=== PATIENT | male | born 1935 | race Caucasian/White ===

== ENCOUNTER → 2016-07-28 | Outpatient (CLI) | payer OTHER ==
[~2016-07-28] MED LIST: ADVIN10/60 INH; ASPEC81 PO; CITA10TA8 PO; METO25TA3 PO; RIVA1TAB4 PO; SIMV10TA2 PO; SYNUNK PO; VNTHFA/IN INH; WARF5TAB7 PO
--- NOTE | 2016-07-28 11:47 | DIAGNOSTIC IMAGING REPORT ---
CT OF THE CHEST WITHOUT IV CONTRAST CLINICAL HISTORY: Lung nodule. COMPARISON STUDY: CT of the abdomen and pelvis February 14, 2016. CT DOSE: 417.67 mGycm TECHNIQUE: Axial images of the chest were obtained without IV contrast. Images were reviewed in the axial, sagittal, and coronal planes. IV contrast was not administered for this examination. FINDINGS: No enlarged axillary, mediastinal or hilar lymph nodes are present. The size the heart is normal. There is slight dilatation of the ascending aorta. There is no pericardial effusion. No pneumothorax or pleural effusion is present. Central airways are patent. There is no consolidation. A few tiny subpleural left lower lobe nodules measuring up to 4 mm are unchanged since CT of February 14, 2016. The largest is a 4 mm nodule shown image 225 of 326. There are a few calcified nodules within the lungs which are benign. There is mild upper lobe predominant paraseptal emphysema. A few right renal cysts are incidentally noted. There are small amount of secretions within the trachea. IMPRESSION: No change in a few tiny subpleural nodules with the left lower lobe since prior CT of February 14, 2016. These nodules, in addition to a few additional small pulmonary nodules are likely benign. A follow-up chest CT in one year to ensure stability is recommended. Electronically signed by: Gil Ashley M.D. 07/28/2016 11:45 AM Dictated Date/Time: 07/28/2016 11:31 AM
== END | disposition home or self-care (01) ==
LOC: C.CTS 10:31
PROVIDERS: ATTEND Nurse Practitioner Family
DX: R91.1 Solitary pulmonary nodule (principal); R91.8 Other nonspecific abnormal finding of lung field

== ENCOUNTER → 2016-09-26 | Outpatient (CLI) | payer OTHER ==
[2016-09-26 09:45] LABS: BASO % 1.2 %; BASO ABS # 0.07 K/uL (0-0.2); COMPLETE YES; EOS % 2.7 %; HEMATOCRIT 42.9 % (42-52); IG% 0.2 %; LYMPH % 30.2 %; LYMPH ABS # 1.81 K/uL (1.2-3.4); MEAN CELL VOLUME 86.8 fL (80-100); MEAN CORPUSCULAR HEMOGLOBIN 30.2 pg (25-34); MEAN CORPUSCULAR HGB CONC 34.7 g/dl (32-36); MEAN PLATELET VOLUME 11.6 fL (7.4-10.4); MONO % 9.8 %; NEUT % 55.9 %; PLATELET COUNT 159 K/uL (130-400); RED BLOOD COUNT 4.94 M/uL (4.7-6.1); WHITE BLOOD COUNT 5.99 K/uL (4.8-10.8)
[2016-09-26 10:29] LABS: ALT/SGPT 25 U/L (12-78); BLOOD UREA NITROGEN 10 mg/dl (7-18); BUN/CREATININE RATIO 10.2 (10-20); CALCIUM 9.2 mg/dl (8.5-10.1); CARBON DIOXIDE 26 mmol/L (21-32); CHLORIDE 106 mmol/L (98-107); CHOLESTEROL 183 mg/dl (0-200); GLUCOSE 103 mg/dl (70-99); SODIUM 141 mmol/L (136-145); TRIGLYCERIDES 87 mg/dl (0-150); VERY LOW DENSITY LIPOPROT CALC 17 mg/dl
[2016-09-26 10:45] LABS: ALKALINE PHOSPHATASE 70 U/L (45-117); AST/SGOT 22 U/L (15-37); CHOLESTEROL/HDL RATIO 2.7; HDL CHOLESTEROL 68 mg/dl; LDL CHOLESTEROL CALCULATED 98 mg/dl; PROSTATE SPECIFIC ANTIGEN < 0.010 ng/ml (0.000-4.000)
--- NOTE | 2016-10-12 10:22 | CODING QUERY MEDICAL NECESSITY ---
CQSUPPORTING DIAGNOSIS NEEDED A supporting diagnosis is required for the test/procedure performed on this patient in order for us to be reimbursed by the patient's insurance. Please provide a supporting diagnosis for the following test/procedure listed below next to the test name along with your signature. *If there is no additional diagnosis for this patient that would support the following test/procedure please document that below next to the test/procedure. Test(s)/Procedure(s) that require a supporting diagnosis: DOS 09/26/16 PROSTATE SPECIFIC TEST (PSA) Provider Signature: Date: Thank you Sima Carr Health Information Management Once completed, please kindly fax back to [phone] For questions please call [phone]
== END | disposition home or self-care (01) ==
LOC: C.LAB 08:43
PROVIDERS: ATTEND Nurse Practitioner Family
DX: R39.9 Unspecified symptoms and signs involving the genitourinary system (principal); E03.9 Hypothyroidism, unspecified; E78.5 Hyperlipidemia, unspecified; J44.9 Chronic obstructive pulmonary disease, unspecified; C61 Malignant neoplasm of prostate

== ENCOUNTER → 2017-04-05 | Day surgery (SDC) | payer OTHER ==
[2017-03-09 13:41] VITALS: Ht 185.4 cm; Wt 92.7 kg
[~2017-04-05] VITALS: Ht 185.4 cm; Wt 92.7 kg
[~2017-04-05] MED LIST changes: +500ML BSS 0.3ML EPI 1:1000PF IRRIG ONE; +ACETAMINOPHEN 325 MG TAB PO PRN; +AMVISC PLUS 0.8ML SYRINGE INT OCU ONE; +ATROPINE SULFATE 0.1 MG/ML 5ML SYR IV PRN; +AcetaZOLAMIDE 250 MG TAB PO SCH; +BETAXOLOL HCL 0.25% OP SUSP PER DROP CHARGE OPR SCH; +BRIMONIDINE TART 0.2% OP SOLN PER DROP CHARGE ONE; +BSS FLUSH ONE; -CITA10TA8 PO; +ENDOCOAT 0.85ML SYRINGE INT OCU ONE; +EpHEDrine SULFATE INJ 50 MG/ML AMP IV PRN; +EpINEphrine INJ 1MG/ML AMP 1 MG/ML AMP ONE; +LACTATED RINGER'S 1000ML 500 ML IV SCH; +LIDOCAINE 4% OP SOLN DROP CHARGE ONE; +LIDOCAINE 4% OP SOLN DROP CHARGE OPR SCH; +LIDOCAINE HCL 1% MPF 2 ML VIAL ONE; +MIDAZOLAM HCL 1 MG/ML 2ML VIAL ONE; +MIX: 4ML BSS 1ML EPI 1:1000 PF INSTIL ONE; +MOXIFLOXACIN OPH SOLN PER DROP CHARGE ONE; +OCUCOAT 1 ML SOLN IO ONE; +POVIDONE-IODINE OP SOLN 30 ML BTL ONE; +PROPARACAINE 0.5% OP SOLN PER DROP CHARGE OPR SCH; -RIVA1TAB4 PO; +TOBRAMYCIN/DEXAMETHASONE OPH OINT PER APPLN CHARGE ONE
[2017-04-05] MEDS: PHENYLEPHRINE HCL 2.5% OP SOLN PER DROP CHARGE OPR SCH ×2 (08:11→08:15)
[2017-04-05] MEDS: TROPICAMIDE 1% OP SOLN PER DROP CHARGE OPR SCH ×2 (08:12→08:16)
[2017-04-05] MEDS: CYCLOPENTOLATE HCL 1% OP SOLN PER DROP CHARGE OPR SCH ×2 (08:13→08:17)
[2017-04-05] MEDS: MOXIFLOXACIN OPH SOLN PER DROP CHARGE OPR SCH ×2 (08:14→08:22)
--- NOTE | 2017-04-05 08:53 | History & Physical Bridge - [place] ---
H&P Re-Evaluation Bridge Note: I have examined the patient, reviewed the History & Physical and in the interval since the performance of the History & Physical I have noted the following changes of clinical significance: No changes noted
--- NOTE | 2017-04-05 09:16 | Discharge Instructions-SurgCtr ---
Discharge Instructions Date of Service Apr 05, 2017. Visit Reason for Visit: Cataract Right Eye Discharge Discharge Diagnosis / Problem: lens implant right eye Discharge Goals Goal(s): Improve function Activity Recommendations Activity Limitations: resume your previous activity Lifting Limitations: no more than 10 pounds Exercise/Sports Limitations: gradually increase as tolerated May Resume Sexual Activity: when tolerated Shower/Bathe: tomorrow Driving or Machine Use: resume 1 day after discharge Anesthesia . Post Anesthesia Instructions: If you have had General Anesthesia or IV Sedation: * Do not drive today. * Resume driving when surgeon permits. * Do not make important decisions or sign legal documents today. * Call surgeon for: 1. Temperature elevations greater than 101 degrees F. 2. Uncontrollable pain. 3. Excessive bleeding. 4. Persistent nausea and vomiting. 5. Medication intolerance (nausea, vomiting or rash). * For nausea and vomiting use only clear liquids such as: tea, soda, bouillon until nausea subsides, then gradually increase diet as tolerated. * If you have any concerns or questions, call your surgeon's office. If physician is unavailable and it is an emergency, call 911 or go to the nearest emergency room. . Instructions / Follow-Up Instructions / Follow-Up ACTIVITY RECOMMENDATIONS: * Light activities. * Mild irritation and blurred vision are common for the first few days. * You may walk outside, read, watch television. * Redness around the white part of the eye is common. MEDICATIONS: Resume previous medications unless instructed otherwise by your surgeon. * Take white Diamox (Acetazolamide) tablet at 1 pm today. Start all eye drops at 1 pm today: * Eye drops (today and tomorrow): Prednisone - one drop in operative eye every 3 hours while awake Ofloxacin - one drop in operative eye every 3 hours while awake SPECIAL CARE INSTRUCTIONS: * Tape plastic shield over eye to sleep at night. Call your doctor at with any concerns or problems. FOLLOW UP VISIT: Follow-up with Dr La at [place] office as scheduled. Diet Recommendations Home Diet: no limitations Procedures Procedures Performed: cataract extraction with lens implant Pending Studies Studies pending at discharge: no Medical Emergencies . Who to Call and When: Medical Emergencies: If at any time you feel your situation is an emergency, please call 911 immediately. . Non-Emergent Contact Non-Emergency issues call your: Funeral Car Driver Call Non-Emergent contact if: your pain is not controlled [phone] . . "Provider Documentation" section prepared by Seven La. .
--- NOTE | 2017-04-05 09:17 | [facility] Operative Report ---
Operative Report Date of Service Apr 05, 2017. Operative Report 1. PREOPERATIVE DIAGNOSIS: Senile nuclear cataract, right eye. 2. POSTOPERATIVE DIAGNOSIS: Senile nuclear cataract, right eye. 3. PROCEDURE: Phacoemulsification of right cataract with posterior chamber lens implant, type [employer], model MX60, power +21.5 diopters. ANESTHESIA: Local standby. SURGEON: Dr. La. COMPLICATIONS: None. OPERATING TIME: 10 minutes. 4. OPERATION AND FINDINGS: DESCRIPTION OF PROCEDURE: The right pupil was dilated. The anesthetic was administered using a topical technique. The right eye was prepped and draped. A speculum was placed. A clear corneal incision was formed. The chamber was filled with Amvisc Plus and Endocoat. Epinephrine solution was used. A paracentesis was placed. A capsulorrhexis was performed. The nucleus was hydrodissected. The lens was removed with phacoemulsification. Time was 3.97 seconds. The aspiration unit was used to remove the cortex. The capsule was filled with Amvisc Plus. The lens implant was folded and placed into the capsule. The incision was hydrated. The Amvisc was aspirated. The wound was secure. The chamber was deep. The pupil was round. Brimonidine, TobraDex ointment and Vigamox solution were placed. The speculum was removed. The patient was returned to the Recovery Room in stable condition. I attest to the content of the Intraoperative Record and any orders documented therein. Any exceptions are noted below. The scribe's documentation has been prepared in my presence, under my direction and personally reviewed by me in its entirety. I confirm that the note above accurately reflects all work, treatment, procedures, and medical decision making performed by me. I personally scribed for Seven La M.D. ([email or web address]) on 04/05/17 at 09:17. Electronically submitted by Karis Arriaga ([email or web address]).
[2017-04-05 09:20] VITALS: TEMP 36.4
--- NOTE | 2017-04-05 09:38 | Anesthesia Progress Nt - [facility] ---
Anesthesia Post Op Note Date & Time Apr 05, 2017 at 09:38 Vital Signs Pain Intensity: 0 Vital Signs Past 12 Hours Date Time Temp Pulse Resp B/P (MAP) Pulse Ox O2 Delivery O2 Flow Rate FiO2 04/05/17 09:20 36.4 64 18 156/85 (108) 96 Room Air 04/05/17 08:00 36.5 58 18 167/76 (106) 96 Room Air Notes Mental Status: alert / awake / arousable, participated in evaluation Pt Amnestic to Procedure: Yes Nausea / Vomiting: adequately controlled Pain: adequately controlled Airway Patency, RR, SpO2: stable & adequate BP & HR: stable & adequate Hydration State: stable & adequate Anesthetic Complications: no major complications apparent
[2017-04-05 09:46] VITALS: BP 148/75; PULSE 46; O2SAT 94
== END | disposition home or self-care (01) ==
LOC: X.SURG 07:42
PROVIDERS: ATTEND Specialist
DX: H25.11 Age-related nuclear cataract, right eye (principal); I10 Essential (primary) hypertension

== ENCOUNTER → 2017-04-07 | Outpatient (CLI) | payer OTHER ==
[~2017-04-07] MED LIST changes: -500ML BSS 0.3ML EPI 1:1000PF IRRIG ONE; -ACETAMINOPHEN 325 MG TAB PO PRN; -AMVISC PLUS 0.8ML SYRINGE INT OCU ONE; -ATROPINE SULFATE 0.1 MG/ML 5ML SYR IV PRN; -AcetaZOLAMIDE 250 MG TAB PO SCH; -BETAXOLOL HCL 0.25% OP SUSP PER DROP CHARGE OPR SCH; -BRIMONIDINE TART 0.2% OP SOLN PER DROP CHARGE ONE; -BSS FLUSH ONE; -ENDOCOAT 0.85ML SYRINGE INT OCU ONE; -EpHEDrine SULFATE INJ 50 MG/ML AMP IV PRN; -EpINEphrine INJ 1MG/ML AMP 1 MG/ML AMP ONE; -LACTATED RINGER'S 1000ML 500 ML IV SCH; -LIDOCAINE 4% OP SOLN DROP CHARGE ONE; -LIDOCAINE 4% OP SOLN DROP CHARGE OPR SCH; -LIDOCAINE HCL 1% MPF 2 ML VIAL ONE; -MIDAZOLAM HCL 1 MG/ML 2ML VIAL ONE; -MIX: 4ML BSS 1ML EPI 1:1000 PF INSTIL ONE; -MOXIFLOXACIN OPH SOLN PER DROP CHARGE ONE; -OCUCOAT 1 ML SOLN IO ONE; -POVIDONE-IODINE OP SOLN 30 ML BTL ONE; -PROPARACAINE 0.5% OP SOLN PER DROP CHARGE OPR SCH; -TOBRAMYCIN/DEXAMETHASONE OPH OINT PER APPLN CHARGE ONE
[2017-04-07 10:10] LABS: ALT/SGPT 17 U/L (12-78); AST/SGOT 18 U/L (15-37); BLOOD UREA NITROGEN 12 mg/dl (7-18); BUN/CREATININE RATIO 10.6 (10-20); CALCIUM 9.4 mg/dl (8.5-10.1); CARBON DIOXIDE 23 mmol/L (21-32); CHLORIDE 108 mmol/L (98-107); CHOLESTEROL 173 mg/dl (0-200); GLUCOSE 89 mg/dl (70-99); POTASSIUM 3.9 mmol/L (3.5-5.1); SODIUM 140 mmol/L (136-145); TRIGLYCERIDES 60 mg/dl (0-150); VERY LOW DENSITY LIPOPROT CALC 12 mg/dl
[2017-04-07 10:21] LABS: ALKALINE PHOSPHATASE 67 U/L (45-117); CHOLESTEROL/HDL RATIO 2.7; HDL CHOLESTEROL 63 mg/dl; LDL CHOLESTEROL CALCULATED 98 mg/dl
== END | disposition home or self-care (01) ==
LOC: C.LAB 07:39
PROVIDERS: ATTEND Nurse Practitioner Family
DX: E03.9 Hypothyroidism, unspecified (principal); E78.5 Hyperlipidemia, unspecified; F32.9 Major depressive disorder, single episode, unspecified; J44.9 Chronic obstructive pulmonary disease, unspecified

== ENCOUNTER → 2017-09-21 | Outpatient (CLI) | payer OTHER ==
[~2017-09-21] MED LIST changes: -METO25TA3 PO; +METO25TA4 PO
--- NOTE | 2017-09-21 14:11 | DIAGNOSTIC IMAGING REPORT ---
CT SCAN OF THE CHEST WITHOUT IV CONTRAST CLINICAL HISTORY: Generalized abdominal pain. Follow-up pulmonary nodule. COMPARISON STUDY: Chest CT dated 07/28/2016. Abdominal CT dated 09/17/2015. TECHNIQUE: CT scan of the thorax was performed from the thoracic inlet to the upper abdomen. Images are reviewed in the axial, sagittal, and coronal planes. IV contrast was not administered for this examination as per the front clinician. A dose lowering technique was utilized adhering to the principles of ALARA. CT DOSE: 478.72 mGy.cm FINDINGS: Thyroid: Imaged portions of the thyroid gland are normal in size and heterogeneous in attenuation. Thoracic aorta: There is atherosclerotic calcification of the thoracic aorta, which is normal in caliber and demonstrates standard 3-vessel arch anatomy. Heart: The heart is normal in size and without pericardial effusion. There are coronary artery calcifications. Lungs and pleural spaces: Small fat-containing Bochdalek hernias are seen at both lung bases. Emphysematous change in apical scarring are noted. There is no airspace consolidation or pleural effusion. Linear scarring versus atelectasis is seen at the lung bases. There are scattered calcified granulomas. The trachea and central airways are clear. 2 pulmonary nodules in the left lower lobe measuring up to 3 mm are seen on image #208 and #219. These are unchanged dating back to 09/17/2015 and are of doubtful significance. No new or concerning pulmonary lesion is identified. Mediastinum: There is no mediastinal lymphadenopathy. Sraah: Not well assessed without IV contrast. Axillae: There is no axillary lymphadenopathy. Upper abdomen: There is a tiny hiatal hernia. Right renal cysts measure up to 3.9 cm. Skeletal structures: The skeletal structures are osteopenic. Degenerative change and hyperkyphosis are noted in the thoracic spine. No lytic or blastic bony lesions are seen. IMPRESSION: 1. Emphysema. 2. There is no airspace consolidation or pleural effusion. 3. There are 2 pulmonary nodules at the left lung base measuring up to 3 mm. These are unchanged from 09/17/2015 and of doubtful significance. No new or concerning pulmonary lesion is identified. 4. Additional findings as above. Electronically signed by: Jefry Carmen M.D. 09/21/2017 2:10 PM Dictated Date/Time: 09/21/2017 2:02 PM
== END | disposition home or self-care (01) ==
LOC: C.CTS 13:35
PROVIDERS: ATTEND Nurse Practitioner Family
DX: R91.8 Other nonspecific abnormal finding of lung field (principal); J43.9 Emphysema, unspecified

== ENCOUNTER → 2017-10-02 | Outpatient (CLI) | payer OTHER ==
[2017-10-02 09:34] LABS: BASO % 1.1 %; BASO ABS # 0.07 K/uL (0-0.2); EOS ABS # 0.19 K/uL (0-0.5); HEMATOCRIT 46.7 % (42-52); HEMOGLOBIN 15.8 g/dL (14.0-18.0); LYMPH % 34.9 %; LYMPH ABS # 2.24 K/uL (1.2-3.4); MEAN CELL VOLUME 85.5 fL (80-100); MEAN CORPUSCULAR HEMOGLOBIN 28.9 pg (25-34); MEAN CORPUSCULAR HGB CONC 33.8 g/dl (32-36); MEAN PLATELET VOLUME 12.7 fL (7.4-10.4); MONO % 11.4 %; MONO ABS # 0.73 K/uL (0.11-0.59); NEUT % 49.6 %; NEUT ABS # 3.18 K/uL (1.4-6.5); PLATELET COUNT 173 K/uL (130-400); RED CELL DISTRIBUTION WIDTH CV 14.2 % (11.5-14.5); RED CELL DISTRIBUTION WIDTH SD 44.4 fL (36.4-46.3); WHITE BLOOD COUNT 6.41 K/uL (4.8-10.8)
[2017-10-02 09:54] LABS: ALBUMIN 3.8 gm/dl (3.4-5.0); ALT/SGPT 21 U/L (12-78); BLOOD UREA NITROGEN 13 mg/dl (7-18); CALCIUM 9.2 mg/dl (8.5-10.1); CARBON DIOXIDE 26 mmol/L (21-32); CHOLESTEROL 190 mg/dl (0-200); CREATININE 1.03 mg/dl (0.60-1.40); GLUCOSE 96 mg/dl (70-99); POTASSIUM 4.1 mmol/L (3.5-5.1); SODIUM 137 mmol/L (136-145)
[2017-10-02 10:05] LABS: ALKALINE PHOSPHATASE 68 U/L (45-117); AST/SGOT 21 U/L (15-37); LDL CHOLESTEROL CALCULATED 111 mg/dl; TOTAL PROTEIN 7.6 gm/dl (6.4-8.2)
== END | disposition home or self-care (01) ==
LOC: C.LAB 08:16
PROVIDERS: ATTEND Nurse Practitioner Family
DX: E03.9 Hypothyroidism, unspecified (principal); E78.5 Hyperlipidemia, unspecified; J44.9 Chronic obstructive pulmonary disease, unspecified; Z79.01 Long term (current) use of anticoagulants; Z23 Encounter for immunization

== ENCOUNTER 2021-05-10 08:10 | Inpatient (IN) ==
[2021-05-10] MEDS ORDERED: SODIUM CHLORIDE 0.9% 1000ML 1,000 ML IV SCH (08:45)
--- NOTE | 2021-05-10 09:11 | Emergency Department Note ---
Impression & Plan COVID-19, Weakness ED Provider Note INFORMANT: Patient and family ED PROVIDER(S): Itz Awan MD CHIEF COMPLAINT: Weakness PLAN: Disposition: Admitted Condition: Good Outpatient prescription management: none Referral: None MEDICAL DECISION MAKING: Patient presented due to complaints of weakness. He had some mild flulike symptoms. The patient noted a positive at-home Covid test. He was hydrated. Blood work showed a moderate anemia which was stable. He was hypokalemic. His TSH was elevated. ECG was unremarkable. Chest x-ray does show some findings concerning for Covid pneumonia. The patient's O2 saturations were mildly low but still above 90%. He was given IV Decadron. Covid testing in ER was performed and confirmed his diagnosis. He notes no appetite and feels very weak. I discussed further management in the hospital. Patient was in agreement. Consultation was made with Dr. Spann. Evaluated patient in the ER and admitted for further management. Triage Nursing notes reviewed and agree them. Vital Signs: reviewed and remarkable for no significant abnormalities Differential diagnosis: COVID-19, infection, dehydration, metabolic abnormality, hypo/hyperglycemia, electrolyte disturbance, anemia, hypoxia, cardiac sources, intracerebral event, toxicologic, neurologic, as well as other pathologies. Diagnostics interpreted by me: ECG: Twelve-lead ECG reveals sinus bradycardia 53 bpm. Left axis deviation. Right bundle branch block. LVH. No ST elevation or depression. Cardiac Monitoring: Cardiac monitoring ordered by me: The patient was placed on continuous cardiac monitoring and observed. It revealed a normal sinus rhythm at 68 beats per minute without ectopy or evidence of dysrhythmia. Imaging studies: Chest x-ray as noted below. HPI: The patient is a 86 year old male who presents to the Emergency Room with complaints of generalized weakness. This started about 5 days ago and is persisting. The patient also notes the following associated symptoms, fatigue chronic cough, nausea. The patient has found no relieving factors. Current pain is rated as 0/10. Patient states that family member had him take a at home Covid test and it was positive. Patient is not vaccinated. No known sick contacts. Pt denies LOC, headache, fevers, chills, diaphoresis, visual changes, neck pain, chest pain, breathing difficulties, vomiting, abdominal pain, back pain, melena, hematochezia, urinary symptoms, numbness, lymphadenopathy, rash, or other complaints. ROS: See above HPI for pertinent positives & negatives. A total of 10 systems reviewed and were otherwise negative. PAST MEDICAL HISTORY:See Below , cOPD PAST SURGICAL HISTORY:See Below, FAMILY HISTORY:See Below SOCIAL HISTORY:See Below, retired HOME MEDICATIONS:See Below ALLERGIES:See Below VITALS:See Below PHYSICAL EXAMINATION: GENERAL: Awake, fatigued-appearing, in no distress HENT: Normocephalic, atraumatic. Oropharynx unremarkable. EYES: Normal conjunctiva. Sclera non-icteric. NECK: Inspection normal. Non-tender. Supple. No nuchal rigidity. FROM. No masses. RESPIRATORY: Clear to auscultation. No wheezes. No rales. Normal respiratory effort. CARDIAC: Normal rate. Normal rhythm. No murmurs. No rubs. Extremities warm and well perfused. Pulses equal. No JVD. GI: Soft, non-distended. No tenderness to palpation. No rebound or guarding. No masses. RECTAL: Deferred. MUSCULOSKELETAL: Atraumatic. Chest examination reveals no tenderness. The back is symmetrical on inspection without obvious abnormality. There is no CVA tend erness to palpation. No joint edema. LOWER EXTREMITIES: Calves are equal size bilaterally and non-tender. No edema. No discoloration. NEURO: Normal sensorium. No focal sensory or motor deficits noted. Speech normal. SKIN: No rash or jaundice noted. Itz Awan MD Past Med/Surg History Medical History History of herpes zoster History of malignant neoplasm of prostate Hypercholesterolemia Hypertension Hypothyroidism Mild AI (aortic insufficiency) Prostate CA Seasonal allergies TIA (transient ischemic attack) Surgical History History of femoral hernia repair History of prostate surgery Family History Father Myocardial infarction Denies family history of Colon cancer Ovarian cancer Prostate cancer No family history of adverse response to anesthesia Breast cancer Social History Smoking Status: Never smoker Tobacco Type: Cigarettes Age Started Using Tobacco: 13; Age Quit Using Tobacco: 77; packs per day: 2; Second Hand Exposure: No; Hx Alcohol Use: No Hx Substance Use: No Preferred Language: Welsh Communication Ability: Effective Visual Impairment: No Limitations Hearing Ability: Normal Road Train Driver Required: No Beliefs That Will Affect Care: None marital status: Current Living Situation: Spouse current occupational status: retired How many Children do You have: 3 Other Information That Helps Us Care for You: No Feels Safe at Home: Yes Safety Concerns: Feels Safe At This Time Childhood Exposure to Second-Hand Smoke: Yes caffeine: Yes during the past year weight has: remained stable Dental Care, Regularly: No Physical Activity Frequency: 1-2 Times per Week Seatbelt Use: always Assistive Devices: Cane Allergies Allergies Allergy/AdvReac Type Severity Reaction Status Date / Time Penicillins Allergy Unknown HIVES Unverified 05/07/21 10:20 Home Meds Home Medications Medication Instructions Recorded Confirmed aspirin 81 mg tablet 81 mg PO DAILY tab 02/19/19 05/07/21 Previous Rx's Medication Instructions Recorded melatonin 5 mg capsule 5 mg PO DAILY #90 cap 04/24/19 albuterol sulfate 90 mcg/actuation 1 - 2 puff INHALATION Q4H PRN #18 g 03/19/20 aerosol inhaler warfarin 5 mg tablet 5 mg PO UD #100 tab 09/01/20 levothyroxine 150 mcg tablet 150 mcg PO DAILY #90 tab 04/05/21 montelukast 10 mg tablet 10 mg PO DAILY #90 tab 04/05/21 simvastatin 20 mg tablet 20 mg PO QPM #90 tab 04/05/21 metoprolol succinate 25 mg 25 mg PO DAILY #90 tab 04/22/21 tablet,extended release 24 hr fluticasone 100 mcg-salmeterol 50 1 inh INHALATION Q12H #60 ea 04/29/21 mcg/dose blistr powdr for inhalation (Advair Diskus) Results & Data (ED) Vital Signs Vital Signs - 24 hr 05/10/21 08:14 05/10/21 08:42 05/10/21 09:00 Temperature 36.9 C Temperature Source Skin Pulse Rate 68 56 L 57 L Pulse Rate [Apical] Pulse Rate from SpO2 Sensor 56 L 57 L Pulse Rhythm [Apical] Pulse Strength [Apical] Respiratory Rate 18 24 19 Respiratory Effort / Characteristics Respiratory Depth Respiratory Pattern Blood Pressure 118/64 Blood Pressure [Right Arm] Blood Pressure Mean 82 Blood Pressure Mean [Right Arm] Blood Pressure Position [Right Arm] Pulse Oximetry 94 96 95 Oxygen Delivery Method Room Air Sepsis Recent Fever Within 48 Hours No Sepsis New/Unexplained Change in Mental Status No Sepsis Action Taken by Nursing No Action Required 05/10/21 09:11 05/10/21 09:12 05/10/21 09:30 Temperature 37.0 C Temperature Source Oral Pulse Rate 57 L Pulse Rate [Apical] 49 L Pulse Rate from SpO2 Sensor 57 L Pulse Rhythm [Apical] Regular Pulse Strength [Apical] Normal Respiratory Rate 22 20 Respiratory Effort / Characteristics Non-Labored Spontaneous Respiratory Depth Normal Respiratory Pattern Regular Blood Pressure Blood Pressure [Right Arm] 119/76 Blood Pressure Mean Blood Pressure Mean [Right Arm] 90 Blood Pressure Position [Right Arm] Lying Pulse Oximetry 95 95 92 Oxygen Delivery Method Room Air Room Air Sepsis Recent Fever Within 48 Hours Sepsis New/Unexplained Change in Mental Status Sepsis Action Taken by Nursing 05/10/21 10:00 05/10/21 10:30 05/10/21 11:00 Temperature Temperature Source Pulse Rate 54 L 52 L 58 L Pulse Rate [Apical] Pulse Rate from SpO2 Sensor 55 L 52 L 59 L Pulse Rhythm [Apical] Pulse Strength [Apical] Respiratory Rate 22 20 20 Respiratory Effort / Characteristics Respiratory Depth Respiratory Pattern Blood Pressure 121/48 L 109/50 L Blood Pressure [Right Arm] Blood Pressure Mean 72 69 Blood Pressure Mean [Right Arm] Blood Pressure Position [Right Arm] Pulse Oximetry 93 92 95 Oxygen Delivery Method Sepsis Recent Fever Within 48 Hours Sepsis New/Unexplained Change in Mental Status Sepsis Action Taken by Nursing 05/10/21 11:19 05/10/21 11:30 05/10/21 12:00 Temperature 37.1 C Temperature Source Oral Pulse Rate 56 L 58 L Pulse Rate [Apical] 58 L Pulse Rate from SpO2 Sensor 56 L Pulse Rhythm [Apical] Regular Pulse Strength [Apical] Normal Respiratory Rate 22 16 22 Respiratory Effort / Characteristics Non-Labored Spontaneous Respiratory Depth Normal Respiratory Pattern Regular Blood Pressure 129/57 L Blood Pressure [Right Arm] 109/50 L Blood Pressure Mean 81 Blood Pressure Mean [Right Arm] 69 Blood Pressure Position [Right Arm] Lying Pulse Oximetry 93 93 94 Oxygen Delivery Method Room Air Sepsis Recent Fever Within 48 Hours Sepsis New/Unexplained Change in Mental Status Sepsis Action Taken by Nursing Laboratory Data Result diagrams: 05/10/21 09:07 05/10/21 09:07 Lab Results 05/10/21 05/10/21 05/10/21 Range/Units 08:52 08:52 09:07 WBC (4.8-10.8) K/uL RBC (4.7-6.1) M/uL Hgb (14.0-18.0) g/dL Hct (42-52) % MCV (80-100) fL MCH (25-34) pg MCHC (32-36) g/dL RDW Std Deviation (36.4-46.3) fL RDW Coeff of Bradley (11.5-14.5) % Plt Count (130-400) K/uL Immature Gran % (Auto) % Neut % (Auto) % Lymph % (Auto) % Dougherty % (Auto) % Eos % (Auto) % Baso % (Auto) % Neut # (Auto) (1.4-6.5) K/uL Lymph # (Auto) (1.2-3.4) K/uL Dougherty # (Auto) (0.11-0.59) K/uL Eos # (Auto) (0-0.5) K/uL Baso # (Auto) (0-0.2) K/uL Immature Gran # (Auto) (0.00-0.02) K/uL Poikilocytosis Anisocytosis Spherocytes Ovalocytes Schistocytes Sodium (136-145) mmol/L Potassium (3.5-5.1) mmol/L Chloride (98-107) mmol/L Carbon Dioxide (21-32) mmol/L Anion Gap (3-11) BUN (7-18) mg/dl Creatinine (0.6-1.4) mg/dl Est Cr Clr Drug Dosing Est GFR ( Amer) ml/min Est GFR (Non-Af Amer) ml/min BUN/Creatinine Ratio (10-20) Glucose (70-99) mg/dl Calcium (8.5-10.1) mg/dl Magnesium (1.8-2.4) mg/dl Total Bilirubin (0.2-1) mg/dl AST (15-37) U/L ALT (12-78) U/L Alkaline Phosphatase (45-117) U/L Troponin I (0-0.045) ng/ml Total Protein (6.4-8.2) gm/dl Albumin (3.4-5.0) gm/dl Globulin (2.5-4.0) gm/dl Albumin/Globulin Ratio (0.9-2) TSH (0.300-4.500) uIu/ml Free T4 (0.8-1.6) ng/dl COVID-19 Eval Order Covid19 at [facility] SARS-CoV-2 (PCR) POSITIVE A* (Negative) Blood Type O Positive Antibody Screen NEGATIVE 05/10/21 05/10/21 Range/Units 09:07 09:07 WBC 3.26 L (4.8-10.8) K/uL RBC 4.61 L (4.7-6.1) M/uL Hgb 8.9 L (14.0-18.0) g/dL Hct 29.1 L (42-52) % MCV 63.1 L (80-100) fL MCH 19.3 L (25-34) pg MCHC 30.6 L (32-36) g/dL RDW Std Deviation 44.1 (36.4-46.3) fL RDW Coeff of Bradley 19.1 H (11.5-14.5) % Plt Count 197 (130-400) K/uL Immature Gran % (Auto) 0.3 % Neut % (Auto) 63.8 % Lymph % (Auto) 20.9 % Dougherty % (Auto) 14.7 % Eos % (Auto) 0.0 % Baso % (Auto) 0.3 % Neut # (Auto) 2.08 (1.4-6.5) K/uL Lymph # (Auto) 0.68 L (1.2-3.4) K/uL Dougherty # (Auto) 0.48 (0.11-0.59) K/uL Eos # (Auto) 0.00 (0-0.5) K/uL Baso # (Auto) 0.01 (0-0.2) K/uL Immature Gran # (Auto) 0.01 (0.00-0.02) K/uL Poikilocytosis Present Anisocytosis Present Spherocytes 1+ Ovalocytes 2+ Schistocytes Occasional Sodium 136 (136-145) mmol/L Potassium 3.2 L (3.5-5.1) mmol/L Chloride 105 (98-107) mmol/L Carbon Dioxide 22 (21-32) mmol/L Anion Gap 10.0 (3-11) BUN 19 H (7-18) mg/dl Creatinine 1.16 (0.6-1.4) mg/dl Est Cr Clr Drug Dosing Not Reportable Est GFR ( Amer) 65.3 ml/min Est GFR (Non-Af Amer) 56.3 ml/min BUN/Creatinine Ratio 16.7 (10-20) Glucose 114 H (70-99) mg/dl Calcium 8.8 (8.5-10.1) mg/dl Magnesium 2.5 H (1.8-2.4) mg/dl Total Bilirubin 0.7 (0.2-1) mg/dl AST 36 (15-37) U/L ALT 20 (12-78) U/L Alkaline Phosphatase 46 (45-117) U/L Troponin I 0.030 (0-0.045) ng/ml Total Protein 7.0 (6.4-8.2) gm/dl Albumin 3.1 L (3.4-5.0) gm/dl Globulin 3.9 (2.5-4.0) gm/dl Albumin/Globulin Ratio 0.8 L (0.9-2) TSH 0.076 L (0.300-4.500) uIu/ml Free T4 1.84 H (0.8-1.6) ng/dl COVID-19 Eval Order SARS-CoV-2 (PCR) (Negative) Blood Type Antibody Screen Administered Medications Levothyroxine Sodium (Levothyroxine Sodium 150 Mcg Tablet) 150 mcg PO DAILYBB [facility] Stop: 06/09/21 14:59 Last Admin: 05/10/21 16:30 Dose: 150 mcg Documented by: [id number] Metoprolol Succinate (Metoprolol Succ 25mg Ext Rel Tab) 25 mg PO DAILY HAKAN Stop: 06/09/21 14:59 Last Admin: 05/10/21 16:30 Dose: 25 mg Documented by: [id number] Montelukast Sodium (Montelukast Sodium 10 Mg Tablet) 10 mg PO DAILY HAKAN Stop: 06/09/21 14:59 Last Admin: 05/10/21 16:31 Dose: 10 mg Documented by: [id number] Discontinued Medications Dexamethasone Sodium Phosphate (DexamethasonePf 10 Mg/Ml Vial) 6 mg IV NOW ONE Stop: 05/10/21 11:01 Last Admin: 05/10/21 11:11 Dose: 6 mg Documented by: [id number] Sodium Chloride (Nss 1000ml) 1,000 mls @ 125 mls/hr IV .Q8H HAKAN Stop: 05/10/21 16:44 Last Infusion: 05/10/21 15:16 Dose: 0 mls/hr Documented by: [id number] Admin: 05/10/21 09:05 Dose: 125 mls/hr Documented by: [id number] Potassium Chloride (Potassium Chloride Crtab 20 Meq Tabcr) 40 meq PO NOW STA Stop: 05/10/21 12:22 Last Admin: 05/10/21 12:40 Dose: 40 meq Documented by: [id number] Imaging Data Radiologist's Impression: Chest X-Ray 05/10/21 08:38 XR chest 1V portable HISTORY: 86 years-old Male weakness acute weakness COMPARISON: Chest CT 09/21/2017, chest radiograph 08/03/2015 TECHNIQUE: Portable AP view of the chest FINDINGS: Cardiac silhouette is enlarged. Calcified plaque of the thoracic aorta. Emphysema with chronic interstitial coarsening. 6 cm nodular density of the right midlung. Ill-defined opacities of the peripheral lateral midlung. No pneumothorax, pleural effusion or overt pulmonary edema. No pneumothorax, pleural effusion or overt pulmonary edema. IMPRESSION: 1. Ill-defined interstitial opacities of the left midlung may represent scarring versus a nonspecific interstitial pneumonitis. 2. Emphysema with chronic interstitial coarsening. 3. 6 mm nodular density of the right midlung suggestive of summation density versus pulmonary nodule. ACT 112: Negative or not required by law. The above report was generated using voice recognition software. It may contain grammatical, syntax or spelling errors. Electronically signed by: Smith Arevalo M.D. 05/10/2021 9:15 AM Discharge Plan Visit Data Chief Complaint: Weakness Stated Complaint: WEAKNESS, NAUSEA ED Provider: Itz Awan Discharge Problem: COVID-19, Weakness Patient Disposition: Admitted As Inpatient Discharge Instructions Interventions: ED Discharge Assessment Last Done: 05/10/21 12:51
--- NOTE | 2021-05-10 09:16 | XRay Report ---
XR chest 1V portable HISTORY: 86 years-old Male weakness acute weakness COMPARISON: Chest CT 09/21/2017, chest radiograph 08/03/2015 TECHNIQUE: Portable AP view of the chest FINDINGS: Cardiac silhouette is enlarged. Calcified plaque of the thoracic aorta. Emphysema with chronic inters titial coarsening. 6 cm nodular density of the right midlung. Ill-defined opacities of the peripheral lateral midlung. No pneumothorax, pleural effusion or overt pulmonary edema. No pneumothorax, pleura l effusion or overt pulmonary edema. IMPRESSION: 1. Ill-defined interstitial opacities of the left midlung may represent scarring versus a nonspecific interstitial pneumonitis. 2. Emphysema with chronic interstitial coarsening. 3. 6 mm nodular density of the right midlung suggestive of summation density versus pulmonary nodule. ACT 112: Negative or not required by law. The above report was generated using voice recognition software. It may contain grammatical, syntax o r spelling errors. Electronically signed by: Smith Arevalo M.D. 05/10/2021 9:15 AM
[2021-05-10 09:36] LABS: Basophils # (auto) 0.01 K/uL (0-0.2); Basophils % (auto) 0.3 %; Hematocrit (blood only) 29.1 % (42-52); Hemoglobin 8.9 g/dL (14.0-18.0); Immature Granulocytes # (auto) 0.01 K/uL (0.00-0.02); Immature Granulocytes % (auto) 0.3 %; Lymphocytes # (auto) 0.68 K/uL (1.2-3.4); Lymphocytes % (auto) 20.9 %; Mean Corpuscular Hemoglobin 19.3 pg (25-34); Mean Corpuscular Hgb Conc 30.6 g/dL (32-36); Mean Corpuscular Volume 63.1 fL (80-100); Monocytes # (auto) 0.48 K/uL (0.11-0.59); Monocytes % (auto) 14.7 %; Neutrophils # (auto) 2.08 K/uL (1.4-6.5); Neutrophils % (auto) 63.8 %; Platelet Count 197 K/uL (130-400); RDW Coefficient of Variation 19.1 % (11.5-14.5); RDW Standard Deviation 44.1 fL (36.4-46.3); Red Blood Count 4.61 M/uL (4.7-6.1); White Blood Count 3.26 K/uL (4.8-10.8)
[2021-05-10 09:56] LABS: Alanine Aminotransferase 20 U/L (12-78); Albumin Level 3.1 gm/dl (3.4-5.0); Aspartate Aminotransferase 36 U/L (15-37); BUN Creatinine Ratio 16.7 (10-20); Blood Urea Nitrogen 19 mg/dl (7-18); Calcium 8.8 mg/dl (8.5-10.1); Carbon Dioxide 22 mmol/L (21-32); Chloride 105 mmol/L (98-107); Est GFR (African American) 65.3 ml/min; Est GFR (Non-African American) 56.3 ml/min; Glucose 114 mg/dl (70-99); Magnesium 2.5 mg/dl (1.8-2.4); Potassium 3.2 mmol/L (3.5-5.1); Sodium 136 mmol/L (136-145)
[2021-05-10 10:07] LABS: Albumin Globulin Ratio 0.8 (0.9-2); Alkaline Phosphatase 46 U/L (45-117); Bilirubin,Total 0.7 mg/dl (0.2-1); Globulin 3.9 gm/dl (2.5-4.0); Thyroid Stimulating Hormone 0.076 uIu/ml (0.300-4.500)
[2021-05-10 10:12] LABS: Anisocytosis Present; Ovalocytes 2+; Poikilocytosis Present; Schistocytes Occasional; Spherocytes 1+
[2021-05-10 10:22] LABS: T4 Free Thyroxine 1.84 ng/dl (0.8-1.6)
[2021-05-10] MEDS ORDERED: dexAMETHasone**PF** 10 MG/ML VIAL IV ONE (11:00)
--- NOTE | 2021-05-10 11:48 | History & Physical Report ---
Date of Service May 10, 2021 Assessment & Plan (1) Weakness: Plan: Patrick is an 86-year-old male who presents with progressive weakness and shortness of breath and to his positive for COVID-19. On admission he is on approximate day 6 of illness. Weakness 2/2 Covid19 with additional underlying anemia Day 6 of illness at time of admission, symptoms began approximately 05/04 Patient was seen as outpatient, had declined monoclonal antibodies. Came in with daughter due to progressive weakness and inability to ambulate from bed to bathroom. Patient with almost no appetite, eating and drinking poorly at home, and no sense of taste. O2 sat 89-90 on room air while lying in bed during exam, patient reports he quickly becomes short of breath and more weak with attempted ambulation. Does not meet criteria for Regeneron Does not meet criteria for remdesivir at this time Decadron 6 mg given in ER, will continue Morning CBC/CMP/CRP ordered No leukocytosis, afebrile CXR: Ill-defined interstitial opacities of the left midlung may represent scarring versus a nonspecific interstitial pneumonitis. Emphysema with chronic interstitial coarsening. 6 mm nodular density of the right midlung suggestive of summation density versus pulmonary nodule. Lung nodule consult placed. PT/OT pending Creatinine normal, potassium repleted as noted (2) Low hemoglobin: Plan: Following epistaxis, hemoglobin 8.9 on admission stable from prior hemoglobin 04/20 No active bleeding on admission Recommend continuing outpatient GI eval. Last colonoscopy within 10 years, no cancer per patient MCV 63.1 Iron studies pending Patient may benefit from iron infusion while inpatient Daily CBC (3) History of epistaxis: Plan: No active bleeding at time of admission (4) Lung nodule: Plan: Lung nodule program follow-up placed (5) AF (paroxysmal atrial fibrillation): Plan: In sinus rhythm at time of assessment/admission Continue metoprolol succinate 25 mg daily, hold for bradycardia Continue warfarin, no active bleeding as noted above (6) AAA (abdominal aortic aneurysm): Plan: History of former tobacco use 10/01/2020: AAA, proximal 2.6 cm, mid 4.2 cm,dist 2.4 cm, R FLO 2 cm, L FLO 2.2 cm 04/2019: 3.6 cm AAA, R FLO 2.5 cm, L FLO 2.3 cm Continue routine monitoring (7) Hypothyroidism: Plan: TSH 0.076, free T4 1.84 on admission Prior TSH normal earlier in the month, defer medication change in the setting of acute illness Continue Synthroid 150 mcg daily (8) Hyperlipidemia: Plan: Continue simvastatin (9) LVH (left ventricular hypertrophy): Plan: No history of [place], no signs of ischemia or diastolic failure on admission (10) COVID-19: Plan: See above (11) COPD (chronic obstructive pulmonary disease): Plan: 2/2 tobacco use in remission Continue home inhalers/formulary equivalent DuoNebs ordered as needed No PFTs available in [facility] (12) Hypokalemia: Plan: 3.2 on admission, 40 M EQ oral repletion ordered Magnesium 2.5 Repeat a.m. Suspect 2/2 poor oral intake Plan: Diet: Heart healthy DVT prophylaxis: Anticoagulated with warfarin CODE STATUS: DNR/DNI, discussed with patient and daughter at bedside Dispo: Medical telemetry, PT/OT pending History of Present Illness Chief Complaint: Weakness Primary Care Provider: Colin Denney III, MYLENE Patrick is here with his daughter. His family is concerned for progressive weakness weakness. Not eating or drinking much. Sx started monday, ~6 days of symptoms. No fevers or chills. +loss of appetite. +weakness. Has not been able to ambulate between bed/bathroom independently. +shortness of breath, some at baseline but much worse last few days. No diarrhea/constipaiton. +loss of taste. His is also sick, became sick at around the same time but is eating better and is not as weak as Patrick. Had a positive home Covid test. Had been seen as outpatient and discussed potential monoclonal antibodies with outpatient PCP, had declined earlier in the week. Daughter reports they came in now because of his progressive weakness and concern that he was worsening overall. Unvaccinated No prior COVID history +wheezing at baseline, increased past few days. No medications yet today Medical History: Reviewed. Hx of chronic anemia, is pending a stool occult blood and GI eval as outpatient. Last colonoscopy slightly less than 10 years ago, no cancer per patient. History of epistaxis. On warfarin for Afib. No hx of MD/heart problem. Medications: Reviewed. PCN, hives. No others Family history: No family history of colorectal cancer, noncontributory Surgical History: Reviewed Allergies: Reviewed Social History: Former tobacco/cigarette use, remission in 15 years. 1.5ppd since teens prior. no EtOH use in many years. Denies recreational drug use. Lives at home with his . Code Status: DNR/DNI, discussed with patient and with daughter at bedside Allergies Allergy/AdvReac Type Severity Reaction Status Date / Time Penicillins Allergy Unknown HIVES Unverified 05/07/21 10:20 Home Medications Medication Instructions Recorded Confirmed Type aspirin 81 mg tablet 81 mg PO DAILY tab 02/19/19 05/07/21 History melatonin 5 mg capsule 5 mg PO DAILY #90 cap 04/24/19 05/07/21 Rx albuterol sulfate 90 mcg/actuation 1 - 2 puff INHALATION Q4H PRN #18 g 03/19/20 05/07/21 Rx aerosol inhaler warfarin 5 mg tablet 5 mg PO UD #100 tab 09/01/20 05/07/21 Rx levothyroxine 150 mcg tablet 150 mcg PO DAILY #90 tab 04/05/21 05/07/21 Rx montelukast 10 mg tablet 10 mg PO DAILY #90 tab 04/05/21 05/07/21 Rx simvastatin 20 mg tablet 20 mg PO QPM #90 tab 04/05/21 05/07/21 Rx metoprolol succinate 25 mg 25 mg PO DAILY #90 tab 04/22/21 05/07/21 Rx tablet,extended release 24 hr fluticasone 100 mcg-salmeterol 50 1 inh INHALATION Q12H #60 ea 04/29/21 05/07/21 Rx mcg/dose blistr powdr for inhalation (Advair Diskus) Past Med/Surg History Medical History History of herpes zoster History of malignant neoplasm of prostate Hypercholesterolemia Hypertension Hypothyroidism Mild AI (aortic insufficiency) Prostate CA Seasonal allergies TIA (transient ischemic attack) Surgical History History of femoral hernia repair History of prostate surgery Family History Father Myocardial infarction Denies family history of Colon cancer Ovarian cancer Prostate cancer No family history of adverse response to anesthesia Breast cancer Social History Smoking Status: Never smoker Tobacco Type: Cigarettes Age Started Using Tobacco: 13; Age Quit Using Tobacco: 77; packs per day: 2; Second Hand Exposure: No; Hx Alcohol Use: No Hx Substance Use: No Preferred Language: Monegasque Communication Ability: Effective Visual Impairment: No Limitations Hearing Ability: Normal 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 NAD. Cooperative. Appears frail, remains curled up in bed through history/physical. HEENT: Atraumatic, normocephalic. Pupils equal and reactive to light and accommodation. Visual acuity and hearing grossly intact. Pulm: Scattered and expiratory wheezes, no inspiratory wheezes, no rales/rhonchi. Moderate air movement. Symmetrical chest rise. No increase work of breathing. No respiratory distress. Cardiac: RRR, -mrg. Radial pulses intact and symmetrical. Abdominal: Nontender, nondistended, soft. BS present. 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 Sensation to soft touch and temperature intact in hands and feet. Capillary refill less than 2 seconds. Results & Data Results & Data ([facility]) Vital Signs (Past 12 Hours) Vital Signs Temp Pulse Pulse Resp BP BP Pulse Ox 05/10/21 11:19 37.1 C 58 L 22 109/50 L 93 05/10/21 11:00 58 L 20 109/50 L 95 05/10/21 10:30 52 L 20 92 05/10/21 10:00 54 L 22 121/48 L 93 05/10/21 09:30 57 L 20 92 05/10/21 09:12 37.0 C 49 L 22 119/76 95 05/10/21 09:11 95 05/10/21 09:00 57 L 19 95 05/10/21 08:42 56 L 24 96 05/10/21 08:14 36.9 C 68 18 118/64 94 PG Care Time/CCT Total # of Minutes Spent Total Time Spent with Patient: Total time spent is greater than 50% in coordination of care (as documented) at patient's floor/unit and/or counseling patient: Coding Level of Care Code INT OBSERVATION CARE 50M LVL 2 Diagnoses Weakness R53.1 Low hemoglobin D64.9 History of epistaxis Z87.898 Lung nodule R91.1 AF (paroxysmal atrial fibrillation) I48.0 AAA (abdominal aortic aneurysm) I71.4 Hypothyroidism E03.9 Hyperlipidemia E78.5 LVH (left ventricular hypertrophy) I51.7 COVID-19 U07.1 COPD (chronic obstructive pulmonary disease) J44.9 Hypokalemia E87.6
[2021-05-10] MEDS ORDERED: POTASSIUM CHLORIDE CRTAB 20 MEQ TABCR PO STA (12:21)
[2021-05-10] MEDS ORDERED: WARFARIN SOD 5 MG TAB PO SCH (14:27)
[2021-05-10] MEDS ORDERED: ACETAMINOPHEN 325 MG TAB PO PRN (14:27)
[2021-05-10] MEDS ORDERED: ALBUT/IPRATROP 3MG/0.5MG NEB 3 ML VIAL NEB PRN (14:27)
[2021-05-10 15:36] LABS: INR 3.2 (0.9-1.1); Prothrombin Time 29.5 Seconds (9.0-12.0)
[2021-05-10] MEDS: LEVOTHYROXINE SODIUM 150 MCG TABLET PO SCH (16:30)
[2021-05-10] MEDS: METOPROLOL SUCC 25MG EXT REL TAB PO SCH (16:30)
[2021-05-10] MEDS: MONTELUKAST SODIUM 10 MG TABLET PO SCH (16:31)
[2021-05-10 18:00] LABS: Appearance Urine Clear (Clear); Bacteria Urine Automated Negative (Negative); Bilirubin Urine Negative (Negative); Blood Urine 1+ (Negative); Color Urine Dark Yellow; Glucose Urine UA Negative (Negative); Ketones Urine 1+ (Negative); Leukocyte Esterase Urine Negative (Negative); Nitrite Urine Negative (Negative); Protein Urine 2+ (Negative); RBC Urine Automated 0-4 /hpf (0-4); Specific Gravity Urine 1.022 (1.000-1.030); Urobilinogen Urine Negative (Negative); pH Urine 5.5 (4.5-7.5)
[2021-05-10] MEDS: SIMVASTATIN 20 MG TAB PO SCH (21:47)
[2021-05-10] MEDS: MELATONIN 3 MG TAB PO SCH (21:47)
--- NOTE | 2021-05-11 05:08 | Electrocardiogram Report ---
Test Reason : Blood Pressure : / mmHG Vent. Rate : 053 BPM Atrial Rate : 053 BPM P-R Int : 190 ms QRS Dur : 128 ms QT Int : 490 ms P-R-T Axes : 068 -40 -35 degrees QTc Int : 459 ms Sinus bradycardia Left axis deviation Right bundle branch block Minimal voltage criteria for LVH, may be normal variant Abnormal ECG When compared with ECG of 03-AUG-2015 12:26, Right bundle branch block is now Present Confirmed by Dion Joel ([id number]) on 05/11/2021 5:07:50 AM Referred By: ED Confirmed By:Dion Joel
[2021-05-11] MEDS: LEVOTHYROXINE SODIUM 150 MCG TABLET PO SCH (05:55)
[2021-05-11 07:17] LABS: Hematocrit (blood only) 27.9 % (42-52); Hemoglobin 8.5 g/dL (14.0-18.0); Immature Granulocytes # (auto) 0.01 K/uL (0.00-0.02); Immature Granulocytes % (auto) 0.3 %; Lymphocytes # (auto) 0.68 K/uL (1.2-3.4); Lymphocytes % (auto) 18.1 %; Mean Corpuscular Hemoglobin 19.2 pg (25-34); Mean Corpuscular Hgb Conc 30.5 g/dL (32-36); Mean Corpuscular Volume 63.1 fL (80-100); Monocytes # (auto) 0.37 K/uL (0.11-0.59); Monocytes % (auto) 9.9 %; Neutrophils # (auto) 2.69 K/uL (1.4-6.5); Neutrophils % (auto) 71.7 %; Platelet Count 174 K/uL (130-400); RDW Coefficient of Variation 19.5 % (11.5-14.5); RDW Standard Deviation 44.3 fL (36.4-46.3); Red Blood Count 4.42 M/uL (4.7-6.1); White Blood Count 3.75 K/uL (4.8-10.8)
[2021-05-11 07:36] LABS: Prothrombin Time 36.3 Seconds (9.0-12.0)
[2021-05-11 07:46] LABS: Anisocytosis Present; Microcytosis Present; Ovalocytes 1+; Poikilocytosis Present
[2021-05-11 07:57] LABS: Alanine Aminotransferase 18 U/L (12-78); Albumin Level 2.7 gm/dl (3.4-5.0); Aspartate Aminotransferase 32 U/L (15-37); BUN Creatinine Ratio 21.2 (10-20); Blood Urea Nitrogen 21 mg/dl (7-18); Calcium 8.6 mg/dl (8.5-10.1); Carbon Dioxide 24 mmol/L (21-32); Chloride 107 mmol/L (98-107); Est GFR (African American) 78.1 ml/min; Est GFR (Non-African American) 67.4 ml/min; Glucose 139 mg/dl (70-99); Potassium 3.3 mmol/L (3.5-5.1); Sodium 137 mmol/L (136-145)
[2021-05-11 07:59] LABS: Albumin Globulin Ratio 0.7 (0.9-2); Alkaline Phosphatase 39 U/L (45-117); Bilirubin,Total 0.7 mg/dl (0.2-1); C Reactive Protein 1.07 mg/dl (0-0.29); Globulin 3.7 gm/dl (2.5-4.0); Total Protein 6.4 gm/dl (6.4-8.2)
[2021-05-11] MEDS: MONTELUKAST SODIUM 10 MG TABLET PO SCH (09:17)
[2021-05-11] MEDS: METOPROLOL SUCC 25MG EXT REL TAB PO SCH (09:17)
[2021-05-11] MEDS: ASPIRIN 81 MG ECTAB PO SCH (09:18)
[2021-05-11] MEDS ORDERED: IRON SUCROSE 300 MG in SODIUM CHLORIDE 0.9% 250 ML IV ONE (10:00)
[2021-05-11] MEDS: dexAMETHasone 6 MG in SYRINGE 0 ML IV SCH (10:46)
[2021-05-11] MEDS: FLUTICASONE/VILANTEROL 100/25MCG 14 PUFFS/INHALER INH SCH (12:38)
[2021-05-11] MEDS ORDERED: POTASSIUM CHLORIDE CRTAB 20 MEQ TABCR PO STA (14:15)
--- NOTE | 2021-05-11 14:15 | Hospitalist Progress Note ---
Date of Service May 11, 2021 Assessment & Plan (1) Weakness: Plan: Patient was seen as outpatient, had declined monoclonal antibodies. Came in with daughter due to progressive weakness and inability to ambulate from bed to bathroom. Symptoms began approximately 05/04. - Likely multifactorial with Covid and anemia both playing a role. Did not meet criteria for Regeneron (now admitted with Covid). Does not meet criteria for remdesivir at this time. Continue dexamethasone 6 mg IV daily (End date: 05/19 for 10-day course). - PT/OT ordered (2) COVID-19: Plan: See above. (3) COPD (chronic obstructive pulmonary disease): Plan: 2/ tobacco use in remission. No PFTs available in [facility]. Continue home inhalers/formulary equivalent DuoNebs ordered as needed (4) Low hemoglobin: Plan: Following epistaxis, hemoglobin 8.9 on admission stable from prior hemoglobin 04/20. No present signs of bleeding. Recommend continuing outpatient GI eval. Last colonoscopy within 10 years, no cancer per patient Iron studies indicate deficiency. S/p Venofer 300 mg IV x 1 on 05/11 (5) History of epistaxis: Plan: No active bleeding at time of admission or today. - Monitor (6) AF (paroxysmal atrial fibrillation): Plan: In sinus rhythm at time of assessment/admission. Continue metoprolol succinate 25 mg daily, hold for bradycardia Hold warfarin for INR of 4.0 on 05/11. With reduced appetite, likely lower PO intake. Consider switch to DOAC if patient willing. (7) AAA (abdominal aortic aneurysm): Plan: History of former tobacco use. 10/01/2020: AAA, proximal 2.6 cm, mid 4.2 cm,dist 2.4 cm, R FLO 2 cm, L FLO 2.2 cm 04/2019: 3.6 cm AAA, R FLO 2.5 cm, L FLO 2.3 cm Continue routine monitoring (8) Hypothyroidism: Plan: TSH 0.076, free T4 1.84 on admission. Prior TSH normal earlier in the month. Continue Synthroid 150 mcg daily (9) Hyperlipidemia: Plan: Continue simvastatin (10) LVH (left ventricular hypertrophy): Plan: No history of [place], no signs of ischemia or diastolic failure on admission. (11) Lung nodule: Plan: Lung nodule program follow-up placed. (12) DVT prophylaxis: Plan: Warfarin for afib Admission and Anticipated Discharge Date Admission Date: May 10, 2021 Subjective Doing well today. Reports some nausea and emesis. Reports no fevers/chills, chest pain, shortness of breath, abdominal pain, nausea, or vomiting. Physical Exam Constitutional: WD/WN, vitals as above Eyes: EOM intact bilaterally; no conjunctival abnormality ENMT: external ear and nose normal, oropharynx normal Neck: trachea midline, no thyromegaly normal visual inspection Respiratory: normal respiratory effort, lungs clear to auscultation no respiratory distress Cardiovascular: RRR, no murmur, no edema Gastrointestinal (Abdomen): Inspection/Auscultation: abdomen normal to inspection; abdomen not distended Musculoskeletal: no cyanosis or clubbing, extremities motor strength 5/5 Skin: no rashes, warm and dry Neurologic: moves all extremities and awake Psychiatric: Orientation: alert, oriented to person and cooperative Results & Data Results & Data ([facility]) Vital Signs (Past 12 Hours) Vital Signs Temp Pulse Resp BP Pulse Ox 05/11/21 10:50 36.9 C 59 L 16 144/66 H 93 05/11/21 06:32 36.8 C 56 L 18 124/56 L 94 05/11/21 02:46 36.9 C 58 L 18 133/60 94 PG Care Time/CCT Total # of Minutes Spent Total Time Spent with Patient: Total time spent is greater than 50% in coordination of care (as documented) at patient's floor/unit and/or counseling patient: Coding Level of Care Code 09743 Subseq Hosp Care Lvl 3 Diagnoses Weakness R53.1 Low hemoglobin D64.9 History of epistaxis Z87.898 Lung nodule R91.1 AF (paroxysmal atrial fibrillation) I48.0 AAA (abdominal aortic aneurysm) I71.4 Hypothyroidism E03.9 Hyperlipidemia E78.5 LVH (left ventricular hypertrophy) I51.7 COVID-19 U07.1 COPD (chronic obstructive pulmonary disease) J44.9 DVT prophylaxis Z29.9
[2021-05-11] MEDS ORDERED: WARFARIN SOD 10 MG TAB PO SCH (16:00)
[2021-05-11] MEDS ORDERED: WARFARIN SOD 5 MG TAB PO SCH (16:00)
[2021-05-11] MEDS: MELATONIN 3 MG TAB PO SCH (21:02)
[2021-05-11] MEDS: SIMVASTATIN 20 MG TAB PO SCH (21:03)
[2021-05-12] MEDS: LEVOTHYROXINE SODIUM 150 MCG TABLET PO SCH (05:50)
[2021-05-12 06:32] LABS: Hematocrit (blood only) 28.3 % (42-52); Hemoglobin 8.7 g/dL (14.0-18.0); Mean Corpuscular Hemoglobin 19.4 pg (25-34); Mean Corpuscular Hgb Conc 30.7 g/dL (32-36); Mean Corpuscular Volume 63.2 fL (80-100); Platelet Count 170 K/uL (130-400); RDW Coefficient of Variation 19.4 % (11.5-14.5); RDW Standard Deviation 43.2 fL (36.4-46.3); Red Blood Count 4.48 M/uL (4.7-6.1); White Blood Count 5.46 K/uL (4.8-10.8)
[2021-05-12 07:07] LABS: BUN Creatinine Ratio 24.2 (10-20); Calcium 8.7 mg/dl (8.5-10.1); Creatinine Clr Calc Pharmacy 61.4 ml/min; Est GFR (African American) 85.2 ml/min; Est GFR (Non-African American) 73.6 ml/min; Magnesium 2.4 mg/dl (1.8-2.4); Potassium 3.4 mmol/L (3.5-5.1)
[2021-05-12] MEDS: FLUTICASONE/VILANTEROL 100/25MCG 14 PUFFS/INHALER INH SCH (08:46)
[2021-05-12] MEDS: ASPIRIN 81 MG ECTAB PO SCH ×2 (08:48→10:07)
[2021-05-12] MEDS: MONTELUKAST SODIUM 10 MG TABLET PO SCH (08:48)
[2021-05-12] MEDS: dexAMETHasone 6 MG in SYRINGE 0 ML IV SCH (08:49)
[2021-05-12] MEDS: METOPROLOL SUCC 25MG EXT REL TAB PO SCH (10:07)
[2021-05-12] MEDS ORDERED: ONDANSETRON INJ 2 MG/ML 2 ML VIAL IV PRN (10:57)
--- NOTE | 2021-05-12 14:32 | Hospitalist Progress Note ---
Date of Service May 12, 2021 Assessment & Plan (1) Weakness: Plan: Patient was seen as outpatient, had declined monoclonal antibodies. Came in with daughter due to progressive weakness and inability to ambulate from bed to bathroom. Symptoms began approximately 05/04. - Likely multifactorial with Covid and anemia both playing a role. Did not meet criteria for Regeneron (now admitted with Covid). Does not meet criteria for remdesivir at this time. Continue dexamethasone 6 mg IV daily (End date: 05/19 for 10-day course). - PT/OT ordered -> Did not work with them yesterday, but I encouraged him today. (2) COVID-19: Plan: See above. (3) COPD (chronic obstructive pulmonary disease): Plan: 2/2 tobacco use in remission. No PFTs available in [facility]. Continue home inhalers/formulary equivalent DuoNebs ordered as needed (4) Low hemoglobin: Plan: Following epistaxis, hemoglobin 8.9 on admission stable from prior hemoglobin 04/20. No present signs of bleeding. Recommend continuing outpatient GI eval. Last colonoscopy within 10 years, no cancer per patient. Iron studies indicated deficiency. S/p Venofer 300 mg IV x 1 on 05/11 (5) History of epistaxis: Plan: No active bleeding at time of admission or today. - Monitor (6) AF (paroxysmal atrial fibrillation): Plan: In sinus rhythm at time of assessment/admission. Continue metoprolol succinate 25 mg daily, hold for bradycardia Hold warfarin for INR of 5.0 on 05/12. With reduced appetite, likely lower PO intake. Consider switch to DOAC if patient willing once INR downtrends. (7) AAA (abdominal aortic aneurysm): Plan: History of former tobacco use. 10/01/2020: AAA, proximal 2.6 cm, mid 4.2 cm,dist 2.4 cm, R FLO 2 cm, L FLO 2.2 cm 04/2019: 3.6 cm AAA, R FLO 2.5 cm, L FLO 2.3 cm Continue routine monitoring (8) Hypothyroidism: Plan: TSH 0.076, free T4 1.84 on admission. Prior TSH normal earlier in the month. Continue Synthroid 150 mcg daily (9) Hyperlipidemia: Plan: Continue simvastatin (10) LVH (left ventricular hypertrophy): Plan: No history of CA, no signs of ischemia or diastolic failure on admission. (11) Lung nodule: Plan: Lung nodule program follow-up placed. (12) DVT prophylaxis: Plan: Warfarin for afib Admission and Anticipated Discharge Date Admission Date: May 10, 2021 Subjective Doing well today. Reports some nausea and emesis in the AM, but this has resolved by the afternoon. Reports feeling stronger today. Reports no fevers/chills, chest pain, shortness of breath, abdominal pain, nausea, or vomiting. Physical Exam Constitutional: WD/WN, vitals as above Eyes: EOM intact bilaterally; no conjunctival abnormality ENMT: external ear and nose normal, oropharynx normal Neck: trachea midline, no thyromegaly normal visual inspection Respiratory: normal respiratory effort, lungs clear to auscultation no respiratory distress Cardiovascular: RRR, no murmur, no edema Gastrointestinal (Abdomen): Inspection/Auscultation: abdomen normal to inspection; abdomen not distended Musculoskeletal: no cyanosis or clubbing, extremities motor strength 5/5 Skin: no rashes, warm and dry Neurologic: moves all extremities and awake Psychiatric: Orientation: alert, oriented to person and cooperative Results & Data Results & Data ([facility]) Vital Signs (Past 12 Hours) Vital Signs Temp Pulse Resp BP Pulse Ox Pulse Ox 05/12/21 13:57 92 05/12/21 09:00 91 05/12/21 07:55 36.8 C 74 18 143/67 H 90 05/12/21 04:00 37.2 C 73 18 145/64 H 92 PG Care Time/CCT Total # of Minutes Spent Total Time Spent with Patient: Total time spent is greater than 50% in coordination of care (as documented) at patient's floor/unit and/or counseling patient: Coding Level of Care Code 36703 Subseq Hosp Care Lvl 2 Diagnoses Weakness R53.1 COVID-19 U07.1 COPD (chronic obstructive pulmonary disease) J44.9 Low hemoglobin D64.9 History of epistaxis Z87.898 AF (paroxysmal atrial fibrillation) I48.0 AAA (abdominal aortic aneurysm) I71.4 Hypothyroidism E03.9 Hyperlipidemia E78.5 LVH (left ventricular hypertrophy) I51.7 Lung nodule R91.1 DVT prophylaxis Z29.9
[2021-05-12] MEDS ORDERED: WARFARIN SOD 10 MG TAB PO SCH (16:00)
[2021-05-12] MEDS ORDERED: WARFARIN SOD 5 MG TAB PO SCH (16:00)
[2021-05-12] MEDS: SIMVASTATIN 20 MG TAB PO SCH (20:01)
[2021-05-12] MEDS: MELATONIN 3 MG TAB PO SCH (20:01)
[2021-05-13] MEDS ORDERED: OLANZapine 10 MG/2.1 ML SDV IM STA (00:24)
[2021-05-13] MEDS: LEVOTHYROXINE SODIUM 150 MCG TABLET PO SCH (06:00)
[2021-05-13 08:31] LABS: Hematocrit (blood only) 30.2 % (42-52); Hemoglobin 9.3 g/dL (14.0-18.0); Mean Corpuscular Hemoglobin 19.4 pg (25-34); Mean Corpuscular Hgb Conc 30.8 g/dL (32-36); Mean Corpuscular Volume 62.9 fL (80-100); Nucleated RBC # (auto) 0.04 K/uL (0-0); Nucleated RBC % (auto) 0.3 %; Platelet Count 173 K/uL (130-400); RDW Coefficient of Variation 19.8 % (11.5-14.5); RDW Standard Deviation 42.6 fL (36.4-46.3); White Blood Count 14.47 K/uL (4.8-10.8)
[2021-05-13 08:48] LABS: Prothrombin Time 49.7 Seconds (9.0-12.0)
[2021-05-13 08:54] LABS: INR 5.6 (0.9-1.1)
[2021-05-13 09:05] LABS: BUN Creatinine Ratio 24.5 (10-20); Calcium 9.3 mg/dl (8.5-10.1); Creatinine Clr Calc Pharmacy 40.5 ml/min; Est GFR (African American) 51.5 ml/min; Est GFR (Non-African American) 44.5 ml/min; Magnesium 2.7 mg/dl (1.8-2.4); Potassium 3.1 mmol/L (3.5-5.1)
[2021-05-13] MEDS ORDERED: PHYTONADIONE 5 MG in SODIUM CHLORIDE 0.9% 50 ML IV ONE (10:00)
[2021-05-13] MEDS: FLUTICASONE/VILANTEROL 100/25MCG 14 PUFFS/INHALER INH SCH (10:06)
[2021-05-13] MEDS: ASPIRIN 81 MG ECTAB PO SCH (10:06)
[2021-05-13] MEDS: dexAMETHasone 6 MG in SYRINGE 0 ML IV SCH (10:07)
[2021-05-13] MEDS: MONTELUKAST SODIUM 10 MG TABLET PO SCH (10:07)
[2021-05-13] MEDS: METOPROLOL SUCC 25MG EXT REL TAB PO SCH (10:07)
[2021-05-13] MEDS: SODIUM CHLORIDE 0.9% 1000ML 1,000 ML IV SCH ×2 (10:08→21:07)
[2021-05-13] MEDS ORDERED: METOPROLOL TARTRATE 1 MG/ML VIAL IV PRN (10:27)
[2021-05-13] MEDS ORDERED: METOPROLOL TARTRATE 1 MG/ML VIAL IV STA (10:34)
[2021-05-13] MEDS ORDERED: METOPROLOL TARTRATE 1 MG/ML VIAL IV ONE (10:38)
[2021-05-13] MEDS: POTASSIUM CHLORIDE / WTR 10 MEQ/100 ML PLCT IV SCH ×4 (10:48→14:46)
--- NOTE | 2021-05-13 11:16 | XRay Report ---
XR chest 1V portable CLINICAL HISTORY: Hypoxemia, Covid. COMPARISON STUDY: Chest radiograph May 10, 2021. FINDINGS: No pneumothorax or pleural effusion is noted. There has been significant progression of ext ensive left lung airspace opacity since prior examination. Right basilar opacity has developed. Cardi omegaly is noted. Note is made of lucency adjacent to the aortic arch. This is probably artifactual. 7 mm nodular right midlung density is again noted. IMPRESSION: 1. Significant progression of extensive left lung airspace opacity and development of right basilar o pacity consistent with viral pneumonia. 2. Lucency adjacent to the aortic arch. This is likely artifactual on this rotated study. However, pn eumomediastinum could appear similar and this can be assessed on follow-up chest radiograph. 3. Possible 7 mm right midlung nodule which can also be assessed on follow-up chest radiographs. ACT 112: Negative or not required by law. Electronically signed by: Gil Ashley M.D. 05/13/2021 11:15 AM
[2021-05-13 11:32] LABS: C Reactive Protein 9.5 mg/dl (0-0.29)
[2021-05-13] MEDS ORDERED: AZITHROMYCIN 500 MG in DEXTROSE 5% 250 ML IV STA (12:04)
--- NOTE | 2021-05-13 12:04 | Hospitalist Progress Note ---
Date of Service May 13, 2021 Assessment & Plan (1) COVID-19: Plan: Osborn decline in last 12 hours. Last evening (05/12) was on 2-3 L NC with comfortable breathing. In AM, was up to 15L and now 50L with O2 sat 89%. - CXR on 05/13 shows significant increase in bilateral infiltrates. Continue dexamethasone 6 mg IV daily (End date: 05/19 for 10-day course). - BNP and procalcitonin both positive, but I do not see new, focal infiltrate on CXR. Will start CAP abx, get MRSA swab, gentle Lasix. - Hold Lasix at this time given new SARA. He has not had anything of note to eat/drink in 2 days, so I don't think sudden hypervolemia is playing a role. (2) Weakness: Plan: Patient was seen as outpatient, had declined monoclonal antibodies. Came in with daughter due to progressive weakness and inability to ambulate from bed to bathroom. Symptoms began approximately 05/04. - Likely multifactorial with Covid and anemia both playing a role. (3) COPD (chronic obstructive pulmonary disease): Plan: 2/2 tobacco use in remission. No PFTs available in [employer]. Continue home inhalers/formulary equivalent DuoNebs ordered as needed (4) Low hemoglobin: Plan: Following epistaxis, hemoglobin 8.9 on admission stable from prior hemoglobin 04/20. No present signs of bleeding. Recommend continuing outpatient GI eval. Last colonoscopy within 10 years, no cancer per patient. Iron studies indicated deficiency. S/p Venofer 300 mg IV x 1 on 05/11 (5) History of epistaxis: Plan: No active bleeding at time of admission or today. - Monitor (6) AF (paroxysmal atrial fibrillation): Plan: In sinus rhythm at time of assessment/admission. Continue metoprolol succinate 25 mg daily, hold for bradycardia Hold warfarin for INR of 5.6 on 05/13. Given small dose of vitamin K on 05/13 as he is not eating. (7) AAA (abdominal aortic aneurysm): Plan: History of former tobacco use. 10/01/2020: AAA, proximal 2.6 cm, mid 4.2 cm,dist 2.4 cm, R FLO 2 cm, L FLO 2.2 cm 04/2019: 3.6 cm AAA, R FLO 2.5 cm, L FLO 2.3 cm Continue routine monitoring (8) Hypothyroidism: Plan: TSH 0.076, free T4 1.84 on admission. Prior TSH normal earlier in the month. Continue Synthroid 150 mcg daily (9) Hyperlipidemia: Plan: Continue simvastatin (10) LVH (left ventricular hypertrophy): Plan: No history of [place], no signs of ischemia or diastolic failure on admission. (11) Lung nodule: Plan: Lung nodule program follow-up placed. (12) DVT prophylaxis: Plan: Warfarin for afib Admission and Anticipated Discharge Date Admission Date: May 10, 2021 Subjective Reports some cough. Actually denies shortness of breath though. Physical Exam Constitutional: WD/WN, vitals as above + acute distress Eyes: EOM intact bilaterally; no conjunctival abnormality ENMT: external ear and nose normal, oropharynx normal Neck: trachea midline, no thyromegaly normal visual inspection Respiratory: + respiratory distress, + labored breathing and + tachypneic Cardiovascular: Rate/Rhythm: + tachycardic and + irregularly irregular Heart Sounds: normal S1 and normal S2 Extremities: no edema Gastrointestinal (Abdomen): Inspection/Auscultation: abdomen normal to inspection; abdomen not distended Musculoskeletal: no cyanosis or clubbing, extremities motor strength 5/5 Skin: no rashes, warm and dry Neurologic: moves all extremities and + confused Psychiatric: Orientation: oriented to person and cooperative Results & Data Results & Data ([facility]) Vital Signs (Past 12 Hours) Vital Signs Temp Pulse Pulse Resp BP BP Pulse Ox 05/13/21 11:16 92 H 24 86 L 05/13/21 10:44 148 H 125/72 05/13/21 09:29 109 H 32 H 91 05/13/21 07:48 103 H 05/13/21 06:01 104 H 32 H 88 L 05/13/21 04:31 36.6 C 71 20 141/67 H 89 L 05/13/21 03:30 100 05/13/21 03:18 38 H 83 L 05/13/21 01:11 92 05/13/21 00:01 88 L PG Care Time/CCT Total # of Minutes Spent Total Time Spent with Patient: Total time spent is greater than 50% in coordination of care (as documented) at patient's floor/unit and/or counseling patient: Coding Level of Care Code 23189 Subseq Hosp Care Lvl 3 Diagnoses Weakness R53.1 COVID-19 U07.1 COPD (chronic obstructive pulmonary disease) J44.9 Low hemoglobin D64.9 History of epistaxis Z87.898 AF (paroxysmal atrial fibrillation) I48.0 AAA (abdominal aortic aneurysm) I71.4 Hypothyroidism E03.9 Hyperlipidemia E78.5 LVH (left ventricular hypertrophy) I51.7 Lung nodule R91.1 DVT prophylaxis Z29.9
[2021-05-13] MEDS ORDERED: cefTRIAXone SODIUM 1,000 MG in DEXTROSE 5% 50 ML IV SCH (12:15)
[2021-05-13] MEDS: cefTRIAXone SODIUM 2,000 MG in DEXTROSE 5% 50 ML IV SCH (12:48)
[2021-05-13] MEDS ORDERED: SCOPOLAMINE 1 MG TDSY TD ONE (16:11)
[2021-05-13] MEDS: MoRPHine SULFATE 2 MG/ML CARP IV PRN ×2 (16:45→20:54)
[2021-05-13] MEDS: CHECK SCOPOLAMINE PATCH PLACEMENT SCH (16:46)
[2021-05-13] MEDS: MELATONIN 3 MG TAB PO SCH (20:11)
[2021-05-13] MEDS: SIMVASTATIN 20 MG TAB PO SCH (20:11)
[2021-05-14] MEDS: CHECK SCOPOLAMINE PATCH PLACEMENT SCH ×4 (00:17→23:20)
[2021-05-14] MEDS: LEVOTHYROXINE SODIUM 150 MCG TABLET PO SCH (05:57)
[2021-05-14 06:52] LABS: Hemoglobin 9.2 g/dL (14.0-18.0); Mean Corpuscular Hemoglobin 19.4 pg (25-34); Mean Corpuscular Hgb Conc 29.7 g/dL (32-36); Mean Corpuscular Volume 65.3 fL (80-100); Platelet Count 200 K/uL (130-400); RDW Coefficient of Variation 20.2 % (11.5-14.5); RDW Standard Deviation 45.2 fL (36.4-46.3); Red Blood Count 4.75 M/uL (4.7-6.1); White Blood Count 14.32 K/uL (4.8-10.8)
[2021-05-14 07:06] LABS: INR 1.2 (0.9-1.1); Prothrombin Time 11.7 Seconds (9.0-12.0)
[2021-05-14 07:26] LABS: BUN Creatinine Ratio 35.5 (10-20); Calcium 9.3 mg/dl (8.5-10.1); Creatinine Clr Calc Pharmacy 42.9 ml/min; Est GFR (African American) 55.3 ml/min; Est GFR (Non-African American) 47.7 ml/min; Magnesium 3.2 mg/dl (1.8-2.4); Potassium 3.9 mmol/L (3.5-5.1)
[2021-05-14] MEDS: dexAMETHasone 6 MG in SYRINGE 0 ML IV SCH (08:52)
[2021-05-14] MEDS: cefTRIAXone SODIUM 2,000 MG in DEXTROSE 5% 50 ML IV SCH (08:52)
[2021-05-14] MEDS: MoRPHine SULFATE 2 MG/ML CARP IV PRN (08:53)
[2021-05-14] MEDS: METOPROLOL SUCC 25MG EXT REL TAB PO SCH (08:54)
[2021-05-14] MEDS: FLUTICASONE/VILANTEROL 100/25MCG 14 PUFFS/INHALER INH SCH (08:54)
[2021-05-14] MEDS: MONTELUKAST SODIUM 10 MG TABLET PO SCH (08:54)
[2021-05-14] MEDS: ASPIRIN 81 MG ECTAB PO SCH (08:54)
[2021-05-14] MEDS ORDERED: STAT IV Infusion **Titration per Protocol STA (10:18)
[2021-05-14] MEDS ORDERED: MoRPHine SULF/NSS 250 MG/250 ML BTL IV SCH (10:30)
[2021-05-14] MEDS: SODIUM CHLORIDE 0.9% 1000ML 1,000 ML IV SCH (12:08)
--- NOTE | 2021-05-14 14:01 | Hospitalist Progress Note ---
Date of Service May 14, 2021 Assessment & Plan (1) COVID-19: Plan: Osborn decline in last 12 hours. Last evening (05/12) was on 2-3 L NC with comfortable breathing. In AM, was up to 15L and now 50L with O2 sat 89%. - CXR on 05/13 shows significant increase in bilateral infiltrates. Continue dexamethasone 6 mg IV daily (End date: 05/19 for 10-day course). - BNP and procalcitonin both positive, but I do not see new, focal infiltrate on CXR. Will start CAP abx, get MRSA swab, gentle Lasix. - Hold Lasix at this time given new SARA. He has not had anything of note to eat/drink in 2 days, so I don't think sudden hypervolemia is playing a role. - Hypoxemic despite high-flow. Family moving to comfort measures. Morphine gtt started per discussion with daughter. Stopped IV fluids, [id number]-kcefttn meds. (2) Weakness: Plan: Patient was seen as outpatient, had declined monoclonal antibodies. Came in with daughter due to progressive weakness and inability to ambulate from bed to bathroom. Symptoms began approximately 05/04. - Likely multifactorial with Covid and anemia both playing a role. (3) COPD (chronic obstructive pulmonary disease): Plan: 2/2 tobacco use in remission. No PFTs available in [employer]. Continue home inhalers/formulary equivalent DuoNebs ordered as needed (4) Low hemoglobin: Plan: Following epistaxis, hemoglobin 8.9 on admission stable from prior hemoglobin 04/20. No present signs of bleeding. Recommend continuing outpatient GI eval. Last colonoscopy within 10 years, no cancer per patient. Iron studies indicated deficiency. S/p Venofer 300 mg IV x 1 on 05/11 (5) History of epistaxis: Plan: No active bleeding at time of admission or today. - Monitor (6) AF (paroxysmal atrial fibrillation): Plan: In sinus rhythm at time of assessment/admission. Continue metoprolol succinate 25 mg daily, hold for bradycardia Hold warfarin for INR of 5.6 on 05/13. Given small dose of vitamin K on 05/13 as he is not eating. (7) AAA (abdominal aortic aneurysm): Plan: History of former tobacco use. 10/01/2020: AAA, proximal 2.6 cm, mid 4.2 cm,dist 2.4 cm, R FLO 2 cm, L FLO 2.2 cm 04/2019: 3.6 cm AAA, R FLO 2.5 cm, L FLO 2.3 cm Continue routine monitoring (8) Hypothyroidism: Plan: TSH 0.076, free T4 1.84 on admission. Prior TSH normal earlier in the month. Continue Synthroid 150 mcg daily (9) Hyperlipidemia: Plan: Continue simvastatin (10) LVH (left ventricular hypertrophy): Plan: No history of DC, no signs of ischemia or diastolic failure on admission. (11) Lung nodule: Plan: Lung nodule program follow-up placed. (12) DVT prophylaxis: Plan: Warfarin for afib Admission and Anticipated Discharge Date Admission Date: May 10, 2021 Subjective Too lethargic to answer. Review of Systems Review of Systems: Unobtainable due to cognitive status and Unobtainable due to reduced consciousness Physical Exam Constitutional: + acute distress and + ill appearing Eyes: EOM intact bilaterally; no conjunctival abnormality ENMT: external ear and nose normal, oropharynx normal Neck: trachea midline, no thyromegaly normal visual inspection Respiratory: + respiratory distress, + labored breathing and + tachypneic Cardiovascular: Rate/Rhythm: + tachycardic and + irregularly irregular Heart Sounds: normal S1 and normal S2 Extremities: no edema Gastrointestinal (Abdomen): Inspection/Auscultation: abdomen normal to inspection; abdomen not distended Skin: no rashes, warm and dry Neurologic: moves all extremities and + confused Psychiatric: Orientation: + not alert and + not oriented to person Results & Data Results & Data ([facility]) Vital Signs (Past 12 Hours) Vital Signs Temp Pulse Pulse Resp BP Pulse Ox 05/14/21 12:09 84 L 05/14/21 11:07 98 H 26 H 81 L 05/14/21 07:36 99 H 24 83 L 05/14/21 07:32 101 H 05/14/21 06:00 36.5 C 101 H 22 146/75 H 81 L 05/14/21 04:02 36.5 C 100 H 26 H 164/70 H 85 L 05/14/21 03:02 102 H 26 H 85 L PG Care Time/CCT Total # of Minutes Spent Total Time Spent with Patient: Total time spent is greater than 50% in coordination of care (as documented) at patient's floor/unit and/or counseling patient: Coding Level of Care Code 87769 Subseq Hosp Care Lvl 2 Diagnoses COVID-19 U07.1 Weakness R53.1 COPD (chronic obstructive pulmonary disease) J44.9 Low hemoglobin D64.9 History of epistaxis Z87.898 AF (paroxysmal atrial fibrillation) I48.0 AAA (abdominal aortic aneurysm) I71.4 Hypothyroidism E03.9 Hyperlipidemia E78.5 LVH (left ventricular hypertrophy) I51.7 Lung nodule R91.1 DVT prophylaxis Z29.9
[2021-05-15] MEDS: CHECK SCOPOLAMINE PATCH PLACEMENT SCH ×3 (07:46→23:12)
[2021-05-15] MEDS: FLUTICASONE/VILANTEROL 100/25MCG 14 PUFFS/INHALER INH SCH (10:03)
--- NOTE | 2021-05-15 13:50 | Hospitalist Progress Note ---
Date of Service May 15, 2021 Assessment & Plan (1) COVID-19: Plan: Osborn decline in last 12 hours. Last evening (05/12) was on 2-3 L NC with comfortable breathing. In AM, was up to 15L and now 50L with O2 sat 89%. - CXR on 05/13 shows significant increase in bilateral infiltrates. Continue dexamethasone 6 mg IV daily (End date: 05/19 for 10-day course). - BNP and procalcitonin both positive, but I do not see new, focal infiltrate on CXR. Will start CAP abx, get MRSA swab, gentle Lasix. - Hold Lasix at this time given new SARA. He has not had anything of note to eat/drink in 2 days, so I don't think sudden hypervolemia is playing a role. - Hypoxemic despite high-flow. Family moving to comfort measures. Morphine gtt started per discussion with daughter. Now on 3 mg/hr. More comfortable. (2) Weakness: Plan: Patient was seen as outpatient, had declined monoclonal antibodies. Came in with daughter due to progressive weakness and inability to ambulate from bed to bathroom. Symptoms began approximately 05/04. - Likely multifactorial with Covid and anemia both playing a role. (3) COPD (chronic obstructive pulmonary disease): Plan: 2/2 tobacco use in remission. [facility] Continue home inhalers/formulary equivalent DuoNebs ordered as needed (4) Low hemoglobin: Plan: Following epistaxis, hemoglobin 8.9 on admission stable from prior hemoglobin 04/20. No present signs of bleeding. Recommend continuing outpatient GI eval. Last colonoscopy within 10 years, no cancer per patient. Iron studies indicated deficiency. S/p Venofer 300 mg IV x 1 on 05/11 (5) History of epistaxis: Plan: No active bleeding at time of admission or today. - Monitor (6) AF (paroxysmal atrial fibrillation): Plan: In sinus rhythm at time of assessment/admission. Continue metoprolol succinate 25 mg daily, hold for bradycardia Hold warfarin for INR of 5.6 on 05/13. Given small dose of vitamin K on 05/13 as he is not eating. (7) AAA (abdominal aortic aneurysm): Plan: History of former tobacco use. 10/01/2020: AAA, proximal 2.6 cm, mid 4.2 cm,dist 2.4 cm, R FLO 2 cm, L FLO 2.2 cm 04/2019: 3.6 cm AAA, R FLO 2.5 cm, L FLO 2.3 cm Continue routine monitoring (8) Hypothyroidism: Plan: TSH 0.076, free T4 1.84 on admission. Prior TSH normal earlier in the month. Continue Synthroid 150 mcg daily (9) Hyperlipidemia: Plan: Continue simvastatin (10) LVH (left ventricular hypertrophy): Plan: No history of SD, no signs of ischemia or diastolic failure on admission. (11) Lung nodule: Plan: Lung nodule program follow-up placed. (12) DVT prophylaxis: Plan: Warfarin for afib Admission and Anticipated Discharge Date Admission Date: May 10, 2021 Subjective Sedate; comfortable. Review of Systems Review of Systems: Unobtainable due to reduced consciousness Physical Exam Constitutional: WD/WN, vitals as above + ill appearing; no acute distress Eyes: EOM intact bilaterally; no conjunctival abnormality ENMT: external ear and nose normal, oropharynx normal Neck: trachea midline, no thyromegaly normal visual inspection Respiratory: normal respiratory effort, lungs clear to auscultation + labored breathing and + tachypneic; no respiratory distress Cardiovascular: RRR, no murmur, no edema Rate/Rhythm: + tachycardic and + irregularly irregular Heart Sounds: normal S1 and normal S2 Extremities: no edema Gastrointestinal (Abdomen): Inspection/Auscultation: abdomen normal to inspection; abdomen not distended Musculoskeletal: no cyanosis or clubbing, extremities motor strength 5/5 Skin: no rashes, warm and dry Neurologic: moves all extremities and + confused Psychiatric: Orientation: + not alert and + not oriented to person Results & Data Results & Data ([facility]) Vital Signs (Past 12 Hours) Vital Signs Pulse Resp Pulse Ox 05/15/21 10:56 99 H 22 84 L 05/15/21 06:17 22 80 L 05/15/21 02:48 16 80 L PG Care Time/CCT Total # of Minutes Spent Total Time Spent with Patient: Total time spent is greater than 50% in coordination of care (as documented) at patient's floor/unit and/or counseling patient: Coding Level of Care Code 65712 Subseq Hosp Care Lvl 2 Diagnoses COVID-19 U07.1 Weakness R53.1 COPD (chronic obstructive pulmonary disease) J44.9 Low hemoglobin D64.9 History of epistaxis Z87.898 AF (paroxysmal atrial fibrillation) I48.0 AAA (abdominal aortic aneurysm) I71.4 Hypothyroidism E03.9 Hyperlipidemia E78.5 LVH (left ventricular hypertrophy) I51.7 Lung nodule R91.1 DVT prophylaxis Z29.9
[2021-05-16] MEDS: FLUTICASONE/VILANTEROL 100/25MCG 14 PUFFS/INHALER INH SCH (07:52)
--- NOTE | 2021-05-16 16:37 | Discharge Summary ---
Date of Service May 16, 2021 Admission HPI Per Admitting Provider Patrick is here with his daughter. His family is concerned for progressive weakness weakness. Not eating or drinking much. Sx started monday, ~6 days of symptoms. No fevers or chills. +loss of appetite. +weakness. Has not been able to ambulate between bed/bathroom independently. +shortness of breath, some at baseline but much worse last few days. No diarrhea/constipaiton. +loss of taste. His is also sick, became sick at around the same time but is eating better and is not as weak as Patrick. Had a positive home Covid test. Had been seen as outpatient and discussed potential monoclonal antibodies with outpatient PCP, had declined earlier in the week. Daughter reports they came in now because of his progressive weakness and concern that he was worsening overall. Unvaccinated No prior COVID history +wheezing at baseline, increased past few days. No medications yet today Medical History: Reviewed. Hx of chronic anemia, is pending a stool occult blood and GI eval as outpatient. Last colonoscopy slightly less than 10 years ago, no cancer per patient. History of epistaxis. On warfarin for Afib. No hx of AK/heart problem. Medications: Reviewed. PCN, hives. No others Family history: No family history of colorectal cancer, noncontributory Surgical History: Reviewed Allergies: Reviewed Social History: Former tobacco/cigarette use, remission in 15 years. 1.5ppd since teens prior. no EtOH use in many years. Denies recreational drug use. Lives at home with his . Code Status: DNR/DNI, discussed with patient and with daughter at bedside Principal Diagnosis Covid-19 pneumonia Discharge Exam No respirations No heart sounds Pupils dilated and fixed Discharge Data Allergies Allergy/AdvReac Type Severity Reaction Status Date / Time Penicillins Allergy Unknown HIVES Unverified 05/07/21 10:20 Consultations 05/10/21 11:10 ED Decision to Admit Stat 05/10/21 12:27 Consult Lung Nodule Program Routine Hospital Course (1) COVID-19: Osborn decline in last 12 hours. Last evening (05/12) was on 2-3 L NC with comfortable breathing. In AM, was up to 15L and now 50L with O2 sat 89%. - CXR on 05/13 shows significant increase in bilateral infiltrates. Continue dexamethasone 6 mg IV daily (End date: 05/19 for 10-day course). - BNP and procalcitonin both positive, but I do not see new, focal infiltrate on CXR. Will start CAP abx, get MRSA swab, gentle Lasix. - Hold Lasix at this time given new SARA. He has not had anything of note to eat/drink in 2 days, so I don't think sudden hypervolemia is playing a role. - Hypoxemic despite high-flow. Family moved to comfort measures. Patient on 05/16/2021 at 9:12am. (2) Weakness: Patient was seen as outpatient, had declined monoclonal antibodies. Came in with daughter due to progressive weakness and inability to ambulate from bed to bathroom. Symptoms began approximately 05/04. - Likely multifactorial with Covid and anemia both playing a role. (3) COPD (chronic obstructive pulmonary disease): 2/2 tobacco use in remission. No PFTs available in [employer]. Continue home inhalers/formulary equivalent DuoNebs ordered as needed (4) Low hemoglobin: Following epistaxis, hemoglobin 8.9 on admission stable from prior hemoglobin 04/20. No present signs of bleeding. Recommend continuing outpatient GI eval. Last colonoscopy within 10 years, no cancer per patient. Iron studies indicated deficiency. S/p Venofer 300 mg IV x 1 on 05/11 (5) History of epistaxis: No active bleeding at time of admission or today. - Monitor (6) AF (paroxysmal atrial fibrillation): In sinus rhythm at time of assessment/admission. Continue metoprolol succinate 25 mg daily, hold for bradycardia Hold warfarin for INR of 5.6 on 05/13. Given small dose of vitamin K on 05/13 as he is not eating. (7) AAA (abdominal aortic aneurysm): History of former tobacco use. 10/01/2020: AAA, proximal 2.6 cm, mid 4.2 cm,dist 2.4 cm, R FLO 2 cm, L FLO 2.2 cm 04/2019: 3.6 cm AAA, R FLO 2.5 cm, L FLO 2.3 cm Continue routine monitoring (8) Hypothyroidism: TSH 0.076, free T4 1.84 on admission. Prior TSH normal earlier in the month. Continue Synthroid 150 mcg daily (9) Hyperlipidemia: Continue simvastatin (10) LVH (left ventricular hypertrophy): No history of AK, no signs of ischemia or diastolic failure on admission. (11) Lung nodule: Lung nodule program follow-up placed. (12) DVT prophylaxis: Warfarin for afib Total Time Total Time Spent Total Time Spent (In Minutes): 35 Discharge Plan Discharge Items Patient Disposition: Other Date/Time: 05/16/21 09:12 Coding Level of Care Code D/C DAY MANAGEMENT >30 MINS Diagnoses COVID-19 U07.1 Weakness R53.1 COPD (chronic obstructive pulmonary disease) J44.9 Low hemoglobin D64.9 History of epistaxis Z87.898 AF (paroxysmal atrial fibrillation) I48.0 AAA (abdominal aortic aneurysm) I71.4 Hypothyroidism E03.9 Hyperlipidemia E78.5 LVH (left ventricular hypertrophy) I51.7 Lung nodule R91.1 DVT prophylaxis Z29.9
--- NOTE | 2021-05-16 16:38 | Death Pronouncement Note ---
Date of Service May 16, 2021 Pronouncement Note Admission Date Admission Date: May 10, 2021 Contributing Factors (1) COVID-19: (2) Weakness: (3) COPD (chronic obstructive pulmonary disease): (4) Low hemoglobin: (5) History of epistaxis: (6) AF (paroxysmal atrial fibrillation): (7) AAA (abdominal aortic aneurysm): (8) Hypothyroidism: (9) Hyperlipidemia: (10) LVH (left ventricular hypertrophy): (11) Lung nodule: (12) DVT prophylaxis: Hospital Course Hospital Course: Worsened due to Covid-19. Family elected for comfort measures. on 05/16/2021 at 9:12am. Additional Data Attending physician: Stuart Calvo MD Coding Level of Care Code D/C DAY MANAGEMENT >30 MINS Diagnoses COVID-19 U07.1 Weakness R53.1 COPD (chronic obstructive pulmonary disease) J44.9 Low hemoglobin D64.9 History of epistaxis Z87.898 AF (paroxysmal atrial fibrillation) I48.0 AAA (abdominal aortic aneurysm) I71.4 Hypothyroidism E03.9 Hyperlipidemia E78.5 LVH (left ventricular hypertrophy) I51.7 Lung nodule R91.1 DVT prophylaxis Z29.9
--- NOTE | 2021-05-24 15:54 | Coding Query ---
CODING QUERY To promote full compliance with coding requirements relating to patient care, provider participation is requested in all cases of [employer] distributor tender uncertainty. Please assist us with the question(s) below: Please clarify the meaning of SARA. SARA is not a valid abbreviation. Thank you. ( x ) Acute Kidney Injury ( ) Acute Kidney Insufficiency ( ) Other (Specify): Principal Diagnosis: "that condition established after study, to be chiefly responsible for occasioning the admission of the patient to the hospital for care." Co-Existing Principal Diagnosis: "when two or more diagnoses equally meet the criteria for principal diagnosis as determined by the circumstances of admission, diagnostic work up, and/or therapy provided, and the Alphabetic Index, Tabular List, or another coding guideline does not provide sequencing direction, any one of the diagnoses may be sequenced first." "When the physician has documented what appears to be a current diagnosis in the body of the record, but has not included the diagnosis in the final diagnostic statement, the physician should be asked whether the diagnosis should be added." (Source [facility] 2 QTR90. p3-4) [facility]
== END 2021-05-16 10:49 | disposition expired | DRG 177 ==
LOC: ED 08:10 → SUATTDRO 12:35 → 2W 12:35